=== PATIENT | female | born 1980 | race African-American/Black ===

== ENCOUNTER 2017-03-28 17:46 | Emergency (ER) | payer OTHER ==
[~2017-03-28] VITALS: Ht 167.6 cm; Wt 61.2 kg
[~2017-03-28 17:46] MED LIST: FLUC150T PO; METR500T PO
[2017-03-28] MEDS ORDERED: HYDROcodone/APAP 5/325MG 1 TAB TABLET PO ONE (18:00)
[2017-03-28 18:01] VITALS: BP 157/82
[2017-03-28] MEDS ORDERED: HYDR-971 PO (18:36)
--- NOTE | 2017-03-28 18:37 | PHYS DOC ---
Past Medical History Past Medical History: Diabetes-Type II Past Surgical History: Hysterectomy Alcohol Use: Occasionally Drug Use: None Adult General Chief Complaint Chief Complaint: FOOT INJURY PAIN HPI HPI Patient is a 36 year old female presents the ED complaining of foot injury 4 hours. Patient states her son accidentally dropped a chair on her left foot. Increasing in swelling since the accident. Rates pain as sharp and 10/10. Denies fever, calf tenderness/swelling, chest pain, shortness of breath, abdominal pain or headache.. Review of Systems Review of Systems Constitutional: Denies fever or chills [] Eyes: Denies change in visual acuity, redness, or eye pain [] HENT: Denies nasal congestion or sore throat [] Respiratory: Denies cough or shortness of breath [] Cardiovascular: No additional information not addressed in HPI [] GI: Denies abdominal pain, nausea, vomiting, bloody stools or diarrhea [] : Denies dysuria or hematuria [] Musculoskeletal: Denies back pain. Complains of foot sprain. [] Integument: Denies rash or skin lesions [] Neurologic: Denies headache, focal weakness or sensory changes [] Endocrine: Denies polyuria or polydipsia [] Current Medications Current Medications Current Medications Medications (Trade) Dose Ordered Sig/Angelica Start Time Stop Time Status Last Admin Dose Admin Acetaminophen/ Hydrocodone Bitart (Lortab 5/325) 1 tab 1X ONCE 03/28/17 18:00 03/28/17 18:06 DC 03/28/17 18:19 1 TAB Allergies Allergies Allergies Coded Allergies Type Severity Reaction Last Updated Verified No Known Drug Allergies 02/27/14 No Physical Exam Physical Exam Constitutional: Well developed, well nourished, no acute distress, non-toxic appearance. [] HENT: Normocephalic, atraumatic, bilateral external ears normal, oropharynx moist, no oral exudates, nose normal. [] Eyes: PERRLA, EOMI, conjunctiva normal, no discharge. [] Neck: Normal range of motion, no tenderness, supple, no stridor. [] Cardiovascular:Heart rate regular rhythm, no murmur [] Lungs & Thorax: Bilateral breath sounds clear to auscultation [] Abdomen: Bowel sounds normal, soft, no tenderness, no masses, no pulsatile masses. [] Skin: Warm, dry, no erythema, no rash. [] Back: No tenderness, no CVA tenderness. [] Extremities: MILD LEFT FOOT TENDERNESS/SWELLING. no cyanosis, no clubbing, ROM intact, no edema. [] Neurologic: Alert and oriented X 3, normal motor function, normal sensory function, no focal deficits noted. [] Psychologic: Affect normal, judgement normal, mood normal. [] Current Patient Data Vital Signs Vital Signs Date Time Temp Pulse Resp B/P (MAP) Pulse Ox O2 Delivery O2 Flow Rate FiO2 03/28/17 18:01 98.0 90 18 99 Room Air 98.0 EKG EKG [] Radiology/Procedures Radiology/Procedures PROCEDURE: FOOT LEFT 3V EXAM: Left foot 3 views. HISTORY: Metal chair fell on foot. COMPARISON: None. FINDINGS: There is soft tissue swelling along the dorsum of the midfoot. No fractures are identified. Joint spaces and alignment are maintained. IMPRESSION: 1. Soft tissue swelling. No fracture.[] Course & Med Decision Making Course & Med Decision Making Pertinent Labs and Imaging studies reviewed. (See chart for details) []Reviewed imaging findings with patient. Patient's pain improved. Splint placed. NV intact post placement. Crutches given. Vital stable, no acute distress. Discussed follow-up with orthopedics in 1-2 days. Discussed reasons to return to the ED. Patient understands and agrees with plan. Dragon Disclaimer Dragon Disclaimer This electronic medical record was generated, in whole or in part, using a voice recognition dictation system. Departure Departure Impression: Primary Impression: Foot injury Additional Impression: Foot sprain Disposition: HOME, SELF-CARE Condition: STABLE Referrals: NO PCP (PCP) KARINA HERNANDEZ MD, JOHN N MD Patient Instructions: Foot Contusion Scripts Hydrocodone/Apap 5-325 (NORCO 5-325 TABLET) 1 Each Tablet 1 TAB PO TID, #6 TAB Prov: OLIVER MORENO 03/28/17 Problem Qualifiers OLIVER MORENO Mar 28, 2017 18:37
--- NOTE | 2017-03-29 09:49 | RAD ---
EXAM: Left foot 3 views. HISTORY: Metal chair fell on foot. COMPARISON: None. FINDINGS: There is soft tissue swelling along the dorsum of the midfoot. No fractures are identified. Joint spaces and alignment are maintained. IMPRESSION: 1. Soft tissue swelling. No fracture.
== END 2017-03-28 18:52 | disposition home or self-care (01) ==
LOC: ER 17:46
DX: S93.602A Unspecified sprain of left foot, initial encounter (principal); W20.8XXA Other cause of strike by thrown, projected or falling object, initial encounter; Y93.89 Activity, other specified; Y92.89 Other specified places as the place of occurrence of the external cause; Y99.8 Other external cause status
CPT/HCPCS: 29515; 73630; 99284-25

== ENCOUNTER 2017-04-12 12:22 | Emergency (ER) | payer OTHER ==
[~2017-04-12] VITALS: Ht 167.6 cm; Wt 61.7 kg
[~2017-04-12 12:22] MED LIST changes: +HYDR-971 PO
[2017-04-12 13:12] VITALS: BP 160/69
[2017-04-12] MEDS ORDERED: NAPROXEN 500 MG TABLET PO STA (13:16)
[2017-04-12] MEDS ORDERED: HYDROcodone/APAP 5/325MG 1 TAB TABLET PO ONE (13:30)
[2017-04-12] MEDS ORDERED: NAPR500T8 PO (14:07)
[2017-04-12] MEDS ORDERED: OXYC-323 PO (14:07)
--- NOTE | 2017-04-12 14:07 | PHYS DOC ---
Past Medical History Past Medical History: Diabetes-Type II Past Surgical History: Hysterectomy Alcohol Use: Occasionally Drug Use: None Adult General Chief Complaint Chief Complaint: FOOT INJURY PAIN HPI HPI Patient is a 36 year old female with history of DM II who presents today with moderate left foot pain specifically on the lateral aspect that began today after patient rolled her foot and fell. Patient denies any loss of consciousness. Review of Systems Review of Systems Constitutional: Denies fever or chills [] Musculoskeletal: moderate left foot pain Integument: Denies rash or skin lesions [] Neurologic: Denies headache, focal weakness or sensory changes [] Current Medications Current Medications Current Medications Medications (Trade) Dose Ordered Sig/Angelica Start Time Stop Time Status Last Admin Dose Admin Acetaminophen/ Hydrocodone Bitart (Lortab 5/325) 2 tab 1X ONCE 04/12/17 13:30 04/12/17 13:31 DC 04/12/17 13:26 2 TAB Morphine Sulfate 5 mg 1X ONCE 04/12/17 14:15 04/12/17 14:16 DC 04/12/17 14:19 5 MG Naproxen (Naprosyn) 500 mg 1X STAT 04/12/17 13:16 04/12/17 13:18 DC 04/12/17 13:26 500 MG Allergies Allergies Allergies Coded Allergies Type Severity Reaction Last Updated Verified No Known Drug Allergies 02/27/14 No Physical Exam Physical Exam Constitutional: Well developed, well nourished, no acute distress, non-toxic appearance. [] Skin: Warm, dry, no erythema, no rash. [] Back: No tenderness, no CVA tenderness. [] Extremities: Left foot appears deformed. There is moderate soft tissue swelling noted on the lateral aspect of the left foot as well as along the proximal fourth and fifth metatarsals. Tenderness on palpation of the base of the fifth metatarsal of the left foot. No navicular bone pain of the left foot. +2 left pedal pulse. Full range of motion to the left toes. Neurologic: Alert and oriented X 3, normal motor function, normal sensory function, no focal deficits noted. [] Psychologic: Affect normal, judgement normal, mood normal. [] Current Patient Data Vital Signs Vital Signs Date Time Temp Pulse Resp B/P (MAP) Pulse Ox O2 Delivery O2 Flow Rate FiO2 04/12/17 14:19 18 96 Room Air 04/12/17 13:12 98.1 78 98.1 EKG EKG [] Radiology/Procedures Radiology/Procedures [] Course & Med Decision Making Course & Med Decision Making Pertinent Labs and Imaging studies reviewed. (See chart for details) Patient is in the ED with left foot pain that began today after she rolled her foot and fell. It foot x-rays interpreted by radiologist were noted for fracture of the base of the fifth metatarsal of the left foot. Patient was placed in a posterior leg splint by the ED RN, neurovascular exam done by me is normal, ice elevation encouraged. Provided crutches. Follow-up with orthopedic doctor by calling the office today or tomorrow for appointment. Dragon Disclaimer Dragon Disclaimer This electronic medical record was generated, in whole or in part, using a voice recognition dictation system. Departure Departure Impression: Primary Impression: Fracture of fifth metatarsal bone of left foot Additional Impression: Fall from standing Disposition: 01 HOME, SELF-CARE Condition: STABLE Referrals: NO PCP (PCP) IRMA CASTILLO II, MD call his office today and set up a follow up appointment Patient Instructions: Metatarsal Stress Fracture-SportsMed Additional Instructions: You were seen with left fifth metatarsal fracture. Ice and elevate the extremity. Contact the provided orthopedic doctor tomorrow morning or this afternoon and set up a follow-up appointment. Do not drive or operate machinery on the pain medicine. Scripts Ibuprofen (IBUPROFEN) 800 Mg Tablet 800 MG PO PRN Q6HRS Y for INFLAMMATION, #30 TAB Prov: CARMEN PLATA APRN 04/12/17 Naproxen (NAPROXEN) 500 Mg Tablet.dr 1 TAB PO BID, #60 TAB 2 Refills Prov: CARMEN PLATA APRN 04/12/17 Oxycodone/Apap 5-325 (PERCOCET 5-325 MG TABLET) 1 Each Tablet 1-2 TAB PO Q4-6HRS, #20 TAB Prov: CARMEN PLATA APRN 04/12/17 Problem Qualifiers Primary Impression: Fracture of fifth metatarsal bone of left foot Encounter type: initial encounter Fracture type: closed Fracture alignment : nondisplaced Qualified Codes: S92.355A - Nondisplaced fracture of fifth metatarsal bone, left foot, initial encounter for closed fracture Additional Impression: Fall from standing Encounter type: initial encounter Qualified Codes: W19.XXXA - Unspecified fall, initial encounter MUTUNGA,CARMEN BINGO CALLER Apr 12, 2017 14:07
[2017-04-12] MEDS ORDERED: MORPHINE SULFATE 10 MG/ML VIAL. IM ONE (14:15)
[2017-04-12] MEDS ORDERED: IBUP-1060 PO (14:15)
--- NOTE | 2017-04-12 14:19 | RAD ---
Exam performed: 3 views left foot. History: Trauma today pain to the left lateral foot near the base of fifth metatarsal. Date of service: 04/12/17 comparison: None available 3 views left foot findings: Normal alignment is preserved. There is a nondisplaced fracture base of fifth metatarsals. Mild soft tissue swelling is seen. No foreign body. Impression: Nondisplaced acute fracture base of fifth metatarsal.
== END 2017-04-12 14:36 | disposition home or self-care (01) ==
LOC: ER 12:22
DX: S92.355A Nondisplaced fracture of fifth metatarsal bone, left foot, initial encounter for closed fracture (principal); E11.9 Type 2 diabetes mellitus without complications; W18.39XA Other fall on same level, initial encounter; Y93.89 Activity, other specified; Y99.8 Other external cause status; Y92.89 Other specified places as the place of occurrence of the external cause
CPT/HCPCS: 29515; 73630; 96372; 99284; J2270

== ENCOUNTER 2017-12-04 20:51 | Emergency (ER) | payer OTHER ==
[2017-12-04] MEDS: ONDANSETRON PF 4 MG/2 ML VIAL. IV (21:46)
[2017-12-04] MEDS: MORPHINE SULFATE 10 MG/ML VIAL. IV ×2 (21:47→23:39)
== END 2017-12-05 00:01 | disposition home or self-care (01) ==
LOC: ER 12-05 00:01
DX: S02.2XXA Fracture of nasal bones, initial encounter for closed fracture (principal); J34.2 Deviated nasal septum; M54.2 Cervicalgia; E11.9 Type 2 diabetes mellitus without complications; Y04.0XXA Assault by unarmed brawl or fight, initial encounter; Y93.89 Activity, other specified; Y99.8 Other external cause status; Y92.89 Other specified places as the place of occurrence of the external cause
CPT/HCPCS: 70450; 70486; 72125; 96374; 96375; 96376; 99284-25; J2270; J2405

== ENCOUNTER 2018-03-31 17:06 | Emergency (ER) | payer OTHER ==
[~2018-03-31] VITALS: Ht 165.1 cm; Wt 54.4 kg
[~2018-03-31 17:06] MED LIST changes: +AMOX1TAB61 PO; +IBUP-1060 PO; +NAPR500T8 PO; +OXYC-323 PO; +OXYC-327 PO
[2018-03-31 19:00] VITALS: BP 111/72
[2018-03-31] MEDS ORDERED: HYDR-971 PO (19:50)
[2018-03-31] MEDS ORDERED: DICL50TA4 PO (19:50)
[2018-03-31] MEDS ORDERED: AMOX875T PO (19:50)
--- NOTE | 2018-03-31 19:51 | PHYS DOC ---
Past Medical History Past Medical History: Anxiety, Depression, Diabetes-Type II Past Surgical History: Hysterectomy, Other Additional Past Surgical Histo: THYROIDECTOMY Alcohol Use: Occasionally Drug Use: None Adult General Chief Complaint Chief Complaint: FOOT INJURY PAIN HPI HPI Patient is a 37 year old female with history of depression, anxiety, hypertension, who presents today complaining of 10 out of 10 left toes pain that began 3 days ago after a dresser she was moving fell on the tip of her toes. Patient states the pain is worse on range of motion to the toes. She states the pain radiates to the left calf. Patient states she has tried over-the -counter medications with no relief. Patient is also complaining of moderate left ear pain for 2 days. Patient states she believes she has an ear infection. Denies any fever coughing or congestion. Review of Systems Review of Systems Constitutional: Denies fever or chills [] Eyes: Denies change in visual acuity, redness, or eye pain [] HENT: Reports left ear pain. Denies nasal congestion or sore throat [] Respiratory: Denies cough or shortness of breath [] Cardiovascular: No additional information not addressed in HPI [] GI: Denies abdominal pain, nausea, vomiting, bloody stools or diarrhea [] : Denies dysuria or hematuria [] Musculoskeletal: Reports left toes pain Integument: Denies rash or skin lesions [] Neurologic: Denies headache, focal weakness or sensory changes [] All other systems were reviewed and found to be within normal limits, except as documented in this note. Allergies Allergies Allergies Coded Allergies Type Severity Reaction Last Updated Verified No Known Drug Allergies 02/27/14 No Physical Exam Physical Exam Constitutional: Well developed, well nourished, no acute distress, non-toxic appearance. [] HENT: Normocephalic, atraumatic, bilateral external ears normal, oropharynx moist, no oral exudates, nose normal. [] Left him is moderately injected, small amount of cloudy fluid. Eyes: PERRLA, EOMI, conjunctiva normal, no discharge. [] Neck: Normal range of motion, no tenderness, supple, no stridor. [] Cardiovascular:Heart rate regular rhythm, no murmur [] Lungs & Thorax: Bilateral breath sounds clear to auscultation [] Abdomen: Bowel sounds normal, soft, no tenderness, no masses, no pulsatile masses. [] Skin: Warm, dry, no erythema, no rash. [] Back: No tenderness, no CVA tenderness. [] Extremities: Left lower extremity with no obvious deformity. Slight tenderness on palpation of the left second and third toes. Full range of motion to the left foot and toes. Negative Homans sign to the left lower extremity. +2 left pedal pulse. Cap refill less than 2 seconds the left toes. Sensation intact to the left lower extremity. Neurologic: Alert and oriented X 3, normal motor function, normal sensory function, no focal deficits noted. [] Psychologic: Affect normal, judgement normal, mood normal. [] Current Patient Data Vital Signs Vital Signs Date Time Temp Pulse Resp B/P (MAP) Pulse Ox O2 Delivery O2 Flow Rate FiO2 03/31/18 19:00 98.1 80 16 111/72 (85) 100 Room Air 98.1 EKG EKG [] Radiology/Procedures Radiology/Procedures [] Course & Med Decision Making Course & Med Decision Making Pertinent Labs and Imaging studies reviewed. (See chart for details) This is a 37-year-old female patient presenting to the ED today with left otitis media as well as left foot contusion. Left foot x-rays interpreted by Dr. Alexander are negative for any acute findings. Patient was discharged with amoxicillin. Follow-up with PCP in 1-2 weeks as needed. Dragon Disclaimer Dragon Disclaimer This electronic medical record was generated, in whole or in part, using a voice recognition dictation system. Departure Departure Impression: Primary Impression: Contracture, left foot Additional Impression: Otitis media Disposition: 01 HOME, SELF-CARE Condition: STABLE Referrals: GILBERT ROMAN MD (PCP) follow up with your doctor in 2 weeks Patient Instructions: Contusion, [id number], Otitis Media, Adult Additional Instructions: You were evaluated in the emergency room for left foot contusion and left ear infection. Complete your antibiotics. Follow-up with your own doctor in 1-2 weeks. Come back to the ED at any point symptoms worsen. Ice elevate the extremity. Scripts Fluconazole (DIFLUCAN) 150 Mg Tablet 1 TAB PO ONCE, #1 TAB 0 Refills Prov: MUTUNGA,CARMEN BOARD MILL SUPERVISOR 03/31/18 Diclofenac Sodium (DICLOFENAC SODIUM) 50 Mg Tablet.dr 1 TAB PO BID, #20 TAB 0 Refills Prov: MUTUNGA,CARMEN BOARD MILL SUPERVISOR 03/31/18 Hydrocodone/Apap 5-325 (NORCO 5-325 TABLET) 1 Each Tablet 1 TAB PO Q6HRS, #10 TAB Prov: CARMEN PLATA APRN 03/31/18 Amoxicillin (AMOXICILLIN) 875 Mg Tablet 1 TAB PO BID, #20 TAB Prov: CARMEN PLATA APRN 03/31/18 Problem Qualifiers Additional Impression: Otitis media Otitis media type: other nonsuppurative Chronicity: acute Laterality: left Recurrence: not specified as recurrent Qualified Codes: H65.192 - Other acute nonsuppurative otitis media, left ear GENNYSANDEECARMEN TORRES Mar 31, 2018 19:51
[2018-03-31] MEDS ORDERED: FLUC150T PO (19:52)
--- NOTE | 2018-04-01 06:27 | RAD ---
Indication:pain, dresser fell on the toes TECHNIQUE: 3 views of the left foot COMPARISON:None FINDINGS/ impression: No acute fracture or dislocation. No soft tissue abnormality. Electronically signed by: Shaq Clark DO (04/01/2018 6:24 AM) [facility]
== END 2018-03-31 20:35 | disposition home or self-care (01) ==
LOC: ER 17:06
DX: M24.575 Contracture, left foot (principal); H65.192 Other acute nonsuppurative otitis media, left ear; E11.9 Type 2 diabetes mellitus without complications; I10 Essential (primary) hypertension
CPT/HCPCS: 73630; 99284

== ENCOUNTER 2018-05-23 13:16 | Emergency (ER) | payer OTHER ==
[~2018-05-23] VITALS: Ht 167.6 cm; Wt 62.1 kg
[~2018-05-23 13:16] MED LIST changes: +AMOX875T PO; +DICL50TA4 PO; +HYDR-3164 PO; -HYDR-971 PO
[2018-05-23 13:44] VITALS: BP 108/70
[2018-05-23 14:28] LABS: BASO # 0.2 x10^3/uL (0.0-0.2); BASO % 2 % (0-3); EOS # 0.5 x10^3/uL (0.0-0.7); EOS % 5 % (0-3); HEMATOCRIT 41.6 % (36.0-47.0); HEMOGLOBIN 14.3 g/dL (12.0-15.5); LYMPH # 3.1 x10^3/uL (1.0-4.8); LYMPH % 29 % (24-48); MEAN CORPUSCULAR HEMOGLOBIN 32 pg (25-35); MEAN CORPUSCULAR HGB CONC 34 g/dL (31-37); MEAN CORPUSCULAR VOLUME 92 fL (79-100); MONO # 1.3 x10^3/uL (0.0-1.1); MONO % 12 % (0-9); NEUT # 5.5 x10^3uL (1.8-7.7); NEUT % 52 % (31-73); PLATELET COUNT 257 x10^3/uL (140-400); RED BLOOD COUNT 4.53 x10^6/uL (3.50-5.40); RED CELL DISTRIBUTION WIDTH 14.1 % (11.5-14.5); WHITE BLOOD COUNT 10.6 x10^3/uL (4.0-11.0)
[2018-05-23 14:33] LABS: CALCIUM 8.6 mg/dL (8.5-10.1); CREATININE 0.8 mg/dL (0.6-1.0); GFR 98.8; POTASSIUM 3.9 mmol/L (3.5-5.1)
[2018-05-23 14:39] LABS: TOTAL BILIRUBIN 0.3 mg/dL (0.2-1.0)
[2018-05-23 15:01] LABS: ALBUMIN 3.2 g/dL (3.4-5.0); ALBUMIN/GLOBULIN RATIO 0.9 (1.0-1.7); TOTAL PROTEIN 6.8 g/dL (6.4-8.2)
[2018-05-23] MEDS ORDERED: AMOX1TAB61 PO (15:19)
--- NOTE | 2018-05-23 15:20 | PHYS DOC ---
Past Medical History Past Medical History: Anxiety, Depression, Diabetes-Type II Past Surgical History: Hysterectomy, Other Additional Past Surgical Histo: THYROIDECTOMY Additional Information: "1/2 PACK DAILY" Alcohol Use: Occasionally Drug Use: Benzodiazepine Adult General Chief Complaint Chief Complaint: LOWER EXTREMITY SWELLING HPI HPI Patient is a 37 year old female who presents with complaints. The patient states that she has had a sore throat and sinus drainage. She also is complaining of a cough and states that she has been having charley horses in her feet. She states that her symptoms have been intermittent times the past month. She denies fever or shortness of breath. Review of Systems Review of Systems Constitutional: Denies fever or chills [] Eyes: Denies change in visual acuity, redness, or eye pain [] HENT: See history of present illness Respiratory: Denies cough or shortness of breath [] Cardiovascular: No additional information not addressed in HPI [] GI: Denies abdominal pain, nausea, vomiting, bloody stools or diarrhea [] : Denies dysuria or hematuria [] Musculoskeletal: See history of present illness Integument: Denies rash or skin lesions [] Neurologic: Denies headache, focal weakness or sensory changes [] Endocrine: Denies polyuria or polydipsia [] All other systems were reviewed and found to be within normal limits, except as documented in this note. Allergies Allergies Allergies Coded Allergies Type Severity Reaction Last Updated Verified No Known Drug Allergies 02/27/14 No Physical Exam Physical Exam Constitutional: Well developed, well nourished, no acute distress, non-toxic appearance. [] HENT: Normocephalic, atraumatic, bilateral external ears normal, pharyngeal erythema with sinus drainage noted to back of throat, no oral exudates noted, nose normal. [] Eyes: PERRLA, EOMI, conjunctiva normal, no discharge. [] Neck: Normal range of motion, no tenderness, supple, no stridor. [] Cardiovascular:Heart rate regular rhythm, no murmur [] Lungs & Thorax: Bilateral breath sounds clear to auscultation [] Abdomen: Bowel sounds normal, soft, no tenderness, no masses, no pulsatile masses. [] Skin: Warm, dry, no erythema, no rash. [] Neurologic: Alert and oriented X 3, normal motor function, normal sensory function, no focal deficits noted. [] Psychologic: Affect normal, judgement normal, mood normal. [] Current Patient Data Vital Signs Vital Signs Date Time Temp Pulse Resp B/P (MAP) Pulse Ox O2 Delivery O2 Flow Rate FiO2 05/23/18 13:44 97.8 87 20 108/70 (83) 98 Room Air 97.8 Lab Values Laboratory Tests Test 05/23/18 14:09 White Blood Count 10.6 x10^3/uL (4.0-11.0) Red Blood Count 4.53 x10^6/uL (3.50-5.40) Hemoglobin 14.3 g/dL (12.0-15.5) Hematocrit 41.6 % (36.0-47.0) Mean Corpuscular Volume 92 fL (79-100) Mean Corpuscular Hemoglobin 32 pg (25-35) Mean Corpuscular Hemoglobin Concent 34 g/dL (31-37) Red Cell Distribution Width 14.1 % (11.5-14.5) Platelet Count 257 x10^3/uL (140-400) Neutrophils (%) (Auto) 52 % (31-73) Lymphocytes (%) (Auto) 29 % (24-48) Monocytes (%) (Auto) 12 % (0-9) H Eosinophils (%) (Auto) 5 % (0-3) H Basophils (%) (Auto) 2 % (0-3) Neutrophils # (Auto) 5.5 x10^3uL (1.8-7.7) Lymphocytes # (Auto) 3.1 x10^3/uL (1.0-4.8) Monocytes # (Auto) 1.3 x10^3/uL (0.0-1.1) H Eosinophils # (Auto) 0.5 x10^3/uL (0.0-0.7) Basophils # (Auto) 0.2 x10^3/uL (0.0-0.2) Sodium Level 140 mmol/L (136-145) Potassium Level 3.9 mmol/L (3.5-5.1) Chloride Level 106 mmol/L (98-107) Carbon Dioxide Level 24 mmol/L (21-32) Anion Gap 10 (6-14) Blood Urea Nitrogen 14 mg/dL (7-20) Creatinine 0.8 mg/dL (0.6-1.0) Estimated GFR (Cockcroft-Gault) 98.8 BUN/Creatinine Ratio 18 (6-20) Glucose Level 96 mg/dL (70-99) Calcium Level 8.6 mg/dL (8.5-10.1) Total Bilirubin 0.3 mg/dL (0.2-1.0) Aspartate Amino Transferase (AST) 18 U/L (15-37) Alanine Aminotransferase (ALT) 26 U/L (14-59) Alkaline Phosphatase 51 U/L (46-116) Total Protein 6.8 g/dL (6.4-8.2) Albumin 3.2 g/dL (3.4-5.0) L Albumin/Globulin Ratio 0.9 (1.0-1.7) L Laboratory Tests 05/23/18 14:09 Laboratory Tests 05/23/18 14:09 EKG EKG [] Radiology/Procedures Radiology/Procedures [] Course & Med Decision Making Course & Med Decision Making Pertinent Labs and Imaging studies reviewed. (See chart for details) [] Dragon Disclaimer Dragon Disclaimer This electronic medical record was generated, in whole or in part, using a voice recognition dictation system. Departure Departure Impression: Primary Impression: Sinusitis Disposition: HOME, SELF-CARE Condition: STABLE Referrals: GILBERT ROMAN MD (PCP) Patient Instructions: Sinusitis Additional Instructions: Take the medication as directed. Follow-up with your primary care provider in one week for recheck if not improving or return to the emergency department if worsening. Scripts Benzonatate (TESSALON PERLE) 100 Mg Capsule 1 CAP PO TID for cough, #21 CAP Prov: JONATHAN JEFFRIES APRN 05/23/18 Amoxicillin/Potassium Clav (AUGMENTIN 875-125 TABLET) 1 Each Tablet 1 TAB PO BID for infection, #20 TAB Prov: JONATHAN JEFFRIES APRN 05/23/18 JONATHAN JEFFRIES APRN May 23, 2018 15:20
[2018-05-23] MEDS ORDERED: BENZ100C PO (15:28)
== END 2018-05-23 15:31 | disposition home or self-care (01) ==
LOC: ER 13:16
DX: J32.9 Chronic sinusitis, unspecified (principal); E11.9 Type 2 diabetes mellitus without complications; F17.200 Nicotine dependence, unspecified, uncomplicated
CPT/HCPCS: 36415; 80053; 85025; 99283

== ENCOUNTER 2018-08-24 19:20 | Emergency (ER) | payer SELFPAY ==
[~2018-08-24] VITALS: Ht 167.6 cm; Wt 63.5 kg
[~2018-08-24 19:20] MED LIST changes: +BENZ100C PO; -OXYC-323 PO; -OXYC-327 PO; +OXYC1TAB15 PO; +OXYC1TAB19 PO
[2018-08-24 20:19] VITALS: BP 122/79
[2018-08-24 20:38] LABS: BILIRUBIN,URINE NEGATIVE (NEG); CLARITY,URINE CLEAR; COLOR,URINE YELLOW; NITRITE,URINE NEGATIVE (NEG); PH,URINE 6.5; PROTEIN,URINE NEGATIVE (NEG-TRACE)
[2018-08-24 20:46] LABS: BACTERIA,URINE FEW /HPF (0-FEW); SQUAMOUS EPITHELIAL CELL,UR MOD /LPF; WBC,URINE OCC /HPF (0-4)
--- NOTE | 2018-08-24 20:53 | PHYS DOC ---
Past Medical History Past Medical History: Anxiety, Depression, Diabetes-Type II (ELENI TURNER APRN) Past Surgical History: Hysterectomy, Other Additional Past Surgical Histo: THYROIDECTOMY (ELENI TURNER APRN) Alcohol Use: Occasionally Drug Use: Benzodiazepine (ELENI TURNER APRN) Adult General Chief Complaint Chief Complaint: SORE THROAT HPI HPI Patient is a 38 year old female who presents with sore throat and some was recently diagnosed with strep. Patient states the symptoms started couple days ago. Patient states she also has an itchy and painful vagina and does have STD concerns but states that she probably has bacterial vaginosis that she's had in the past. Patient denies any vaginal discharge. States she did try Monistat 3 and only made things worse. (ELENI TURNER APRN) Review of Systems Review of Systems Constitutional: Denies fever or chills [] Eyes: Denies change in visual acuity, redness, or eye pain [] HENT: Denies nasal congestion. sore throat [] Respiratory: Denies cough or shortness of breath [] Cardiovascular: No additional information not addressed in HPI [] GI: Denies abdominal pain, nausea, vomiting, bloody stools or diarrhea [] : Denies dysuria or hematuria [] Musculoskeletal: Denies back pain or joint pain [] Integument: Denies rash or skin lesions [] Neurologic: Denies headache, focal weakness or sensory changes [] All other systems were reviewed and found to be within normal limits, except as documented in this note. (ELENI TURNER APRN) Current Medications Current Medications Current Medications Medications (Trade) Dose Ordered Sig/Angelica Start Time Stop Time Status Last Admin Dose Admin Acetaminophen/ Hydrocodone Bitart (Lortab 5/325) 1 tab 1X ONCE 08/24/18 21:00 08/24/18 21:01 DC 08/24/18 20:58 1 TAB Azithromycin (Zithromax) 1,000 mg 1X ONCE 08/24/18 21:45 08/24/18 21:46 DC 08/24/18 22:05 1,000 MG Ceftriaxone Sodium (Rocephin Im) 250 mg 1X ONCE 08/24/18 21:45 08/24/18 21:46 DC 08/24/18 22:05 250 MG Dexamethasone (Decadron) 8 mg 1X ONCE 08/24/18 21:00 08/24/18 21:01 DC 08/24/18 20:58 8 MG Fluconazole (Diflucan) 150 mg 1X ONCE 08/24/18 22:15 08/24/18 22:16 DC 08/24/18 22:15 150 MG (KARINA COTA DO) Allergies Allergies Allergies Coded Allergies Type Severity Reaction Last Updated Verified No Known Drug Allergies 02/27/14 No (KARINA COTA DO) Physical Exam Physical Exam Constitutional: Well developed, well nourished, no acute distress, non-toxic appearance. [] HENT: Normocephalic, atraumatic, bilateral external ears normal, oropharynx moist, no oral exudates, nose normal. Throat reddened and no exudate. Swollen bilateral tonsils. [] Eyes: PERRLA, EOMI, conjunctiva normal, no discharge. [] Neck: Normal range of motion, no tenderness, supple, no stridor. [] Cardiovascular:Heart rate regular rhythm, no murmur [] Lungs & Thorax: Bilateral breath sounds clear to auscultation [] Abdomen: Bowel sounds normal, soft, no tenderness, no masses, no pulsatile masses. [] Skin: Warm, dry, no erythema, no rash. [] Back: No tenderness, no CVA tenderness. [] Extremities: No tenderness, no cyanosis, no clubbing, ROM intact, no edema. [] Neurologic: Alert and oriented X 3, normal motor function, normal sensory function, no focal deficits noted. [] Psychologic: Affect normal, judgement normal, mood normal. [] (ELENI TURNER APRN) Current Patient Data Vital Signs Vital Signs Date Time Temp Pulse Resp B/P (MAP) Pulse Ox O2 Delivery O2 Flow Rate FiO2 08/24/18 21:58 18 98 Room Air 08/24/18 20:19 98.4 71 122/79 (93) 98.4 (KARINA COTA DO) Lab Values Laboratory Tests Test 08/24/18 20:00 08/24/18 20:39 08/24/18 21:35 Urine Collection Type Unknown Urine Color Yellow Urine Clarity Clear Urine pH 6.5 Urine Specific [place] 1.025 Urine Protein Negative mg/dL (NEG-TRACE) Urine Glucose (UA) Negative mg/dL (NEG) Urine Ketones (Stick) Negative mg/dL (NEG) Urine Blood Moderate (NEG) Urine Nitrite Negative (NEG) Urine Bilirubin Negative (NEG) Urine Urobilinogen Dipstick 1.0 mg/dL (0.2 mg/dL) Urine Leukocyte Esterase Negative (NEG) Urine RBC 6-10 /HPF (0-2) Urine WBC Occ /HPF (0-4) Urine Squamous Epithelial Cells Mod /LPF Urine Bacteria Few /HPF (0-FEW) Urine Mucus Marked /LPF Group A Streptococcus Rapid Negative (NEGATIVE) Chlamydia DNA Probe Negative (Negative) Neisseria gonorrhoeae DNA Probe Negative (Negative) Microbiology 08/24/18 Wet Prep - Final, Complete 08/24/18 Throat Culture - Final, Complete 08/24/18 - Final, Complete (KARINA COTA DO) Lab Values Laboratory Tests Test 08/24/18 20:00 Urine Collection Type Unknown Urine Color Yellow Urine Clarity Clear Urine pH 6.5 Urine Specific [place] 1.025 Urine Protein Negative mg/dL (NEG-TRACE) Urine Glucose (UA) Negative mg/dL (NEG) Urine Ketones (Stick) Negative mg/dL (NEG) Urine Blood Moderate (NEG) Urine Nitrite Negative (NEG) Urine Bilirubin Negative (NEG) Urine Urobilinogen Dipstick 1.0 mg/dL (0.2 mg/dL) Urine Leukocyte Esterase Negative (NEG) Urine RBC 6-10 /HPF (0-2) Urine WBC Occ /HPF (0-4) Urine Squamous Epithelial Cells Mod /LPF Urine Bacteria Few /HPF (0-FEW) Urine Mucus Marked /LPF Microbiology 08/24/18 Wet Prep - Final, Complete (ELENI TURNER APRN) EKG EKG [] (ELENI TURNER AUTOMOTIVE CENTER MANAGER) Radiology/Procedures Radiology/Procedures [] (ELENI TURNER APRN) Course & Med Decision Making Course & Med Decision Making Patient is a 38 year old female who presents with sore throat and some was recently diagnosed with strep. Patient states the symptoms started couple days ago. Patient states she also has an itchy and painful vagina and does have STD concerns but states that she probably has bacterial vaginosis that she's had in the past. Patient denies any vaginal discharge. States she did try Monistat 3 and only made things worse. Alert and oriented. Speaks in full clear sentences. Mucous membranes moist. Skin pink warm and dry. Afebrile. Vital signs within normal limits. Bilateral tonsils are reddened with 1-2+ swelling and no exudates. Tympanic membranes are pearly white. Lungs are clear to auscultation all lobes. Vital signs are within normal limits. There is no lymph nodes felt. Patient is given Munith for her throat pain and dexamethasone. She'll also be treated for sexually transmitted diseases. Urinalysis shows no section. Wet prep shows yeast. Patient will be sent home and is told that he will receive a phone call in 48 hours if her chlamydia or gonorrhea is positive only. Patient has been treated today for sexually transmitted diseases. Patient will be given a dose of Diflucan. Pelvic Exam: [employer] present Abdomen: Nontender External Genitalia: Normal Skin Speculum: reddened vaginal mucosa, copious white cervical discharge Bimanual: No adnexal masses or tenderness, No CMT (ELENI TURNER APRN) Dragon Disclaimer Dragon Disclaimer This electronic medical record was generated, in whole or in part, using a voice recognition dictation system. (ELENI TURNER APRN) Departure Departure Impression: Primary Impression: Yeast infection Additional Impression: Sore throat Disposition: HOME, SELF-CARE Condition: STABLE Referrals: GILBERT ROMAN MD (PCP) Patient Instructions: Sore Throat Additional Instructions: Use medications as prescribed. Follow up with primary care if needed. Scripts Azithromycin (AZITHROMYCIN TABLET) 250 Mg Tablet 250 MG PO DAILY for ANTI-BIOTIC for 4 Days, #4 TAB 0 Refills Prov: ELENI TURNER APRN 08/24/18 Fluconazole (DIFLUCAN) 150 Mg Tablet 1 TAB PO ONCE, #1 TAB 1 Refill Prov: ELENI TURNER APRN 08/24/18 Attending Signature Attending Signature I have reviewed the PA/CLINICAL SERVICES DIRECTOR's note and plan of care. I was available for consultation as needed during the patient's visit in the emergency department. I agree with the clinical impression, plan, and disposition. (KARINA COTA DO) Problem Qualifiers ELENI TURNER APRN Aug 24, 2018 20:53 KARINA COTA DO Aug 29, 2018 17:12
[2018-08-24] MEDS ORDERED: HYDROcodone/APAP 5/325MG 1 TAB TABLET PO ONE (21:00)
[2018-08-24] MEDS ORDERED: DEXAMETHASONE 4 MG TABLET PO ONE (21:00)
[2018-08-24] MEDS ORDERED: cefTRIAXone IM 250 MG VIAL IM ONE (21:45)
[2018-08-24] MEDS ORDERED: AZITHROMYCIN 250 MG TABLET. PO ONE (21:45)
[2018-08-24] MEDS ORDERED: AZIT250T6 PO (22:00)
[2018-08-24] MEDS ORDERED: FLUC150T PO (22:00)
[2018-08-24] MEDS ORDERED: FLUCONAZOLE 100 MG TABLET. PO ONE (22:15)
[2018-08-26 13:20] LABS: GC PROBE Negative (Negative)
== END 2018-08-24 22:20 | disposition home or self-care (01) ==
LOC: ER 19:20
DX: J02.9 Acute pharyngitis, unspecified (principal); B37.9 Candidiasis, unspecified; F41.9 Anxiety disorder, unspecified; F32.9 Major depressive disorder, single episode, unspecified; E11.9 Type 2 diabetes mellitus without complications; Z90.710 Acquired absence of both cervix and uterus; Z90.89 Acquired absence of other organs
CPT/HCPCS: 81001; 87070; 87491; 87591; 87880; 96372; 99284; J0696; J8540; Q0111; Q0144

== ENCOUNTER 2019-03-05 16:30 | Emergency (ER) | payer MEDICAID ==
[~2019-03-05] VITALS: Ht 167.6 cm; Wt 64.9 kg
[~2019-03-05 16:30] MED LIST changes: +AZIT250T6 PO
[2019-03-05] MEDS ORDERED: AZITHROMYCIN 250 MG TABLET. PO ONE (17:15)
[2019-03-05] MEDS ORDERED: cefTRIAXone IM 250 MG VIAL IM ONE (17:15)
[2019-03-05 17:43] VITALS: BP 125/65
[2019-03-05 18:06] LABS: BILIRUBIN,URINE NEGATIVE (NEG); CLARITY,URINE CLEAR; COLOR,URINE YELLOW; NITRITE,URINE NEGATIVE (NEG); PH,URINE 5.5; PROTEIN,URINE NEGATIVE (NEG-TRACE); UROBILINOGEN,URINE 0.2 mg/dL (0.2 mg/dL)
[2019-03-05 18:13] LABS: BACTERIA,URINE FEW /HPF (0-FEW); RBC,URINE RARE /HPF (0-2); SQUAMOUS EPITHELIAL CELL,UR FEW /LPF; WBC,URINE 0 /HPF (0-4)
--- NOTE | 2019-03-05 18:58 | PHYS DOC ---
Past Medical History Past Medical History: No Pertinent History Past Surgical History: Hysterectomy Additional Past Surgical Histo: THYROIDECTOMY, HERNIA REPAIR Additional Information: 07/06 PPD Alcohol Use: Occasionally Drug Use: Marijuana Adult General Chief Complaint Chief Complaint: VAGINAL PROBLEM HPI HPI Patient is a 38 year old female who presents with vaginal discharge and concern for STD Reports chronic pelvic and rectal pain after intercourse. Hx of HYSTER OBREGANN did a pelvic US 2 months ago, small right ovarian cyst She reports she has been with her partner for 2 years. He has cheated on her Last night vaginal and anal pain with intercourse. she reports no lesions. states he ejaculated in her anus and he told her his semen appeared huntley. Today the patient with thick white vaginal discharge. No fevers She is resting in no distress Review of Systems Review of Systems Constitutional: Denies fever or chills [] Eyes: Denies change in visual acuity, redness, or eye pain [] HENT: Denies nasal congestion or sore throat [] Respiratory: Denies cough or shortness of breath [] Cardiovascular: No additional information not addressed in HPI [] GI: Denies nausea, vomiting, bloody stools or diarrhea []c/o chronic pelvic pain after intercourse/anal pain : Denies dysuria or hematuria []c/o vaginal discharge Musculoskeletal: Denies back pain or joint pain [] Integument: Denies rash or skin lesions [] Neurologic: Denies headache, focal weakness or sensory changes [] Endocrine: Denies polyuria or polydipsia [] All other systems were reviewed and found to be within normal limits, except as documented in this note. Current Medications Current Medications Current Medications Medications (Trade) Dose Ordered Sig/Angelica Start Time Stop Time Status Last Admin Dose Admin Azithromycin (Zithromax) 1,000 mg 1X ONCE 03/05/19 17:15 03/05/19 17:16 DC 03/05/19 17:27 1,000 MG Ceftriaxone Sodium (Rocephin Im) 250 mg 1X ONCE 03/05/19 17:15 03/05/19 17:16 DC 03/05/19 17:27 250 MG Allergies Allergies Allergies Coded Allergies Type Severity Reaction Last Updated Verified No Known Drug Allergies 02/27/14 No Physical Exam Physical Exam Constitutional: Well developed, well nourished, no acute distress, non-toxic appearance. [] HENT: Normocephalic, atraumatic, bilateral external ears normal, oropharynx moist, no oral exudates, nose normal. [] Eyes: PERRLA, EOMI, conjunctiva normal, no discharge. [] Neck: Normal range of motion, no tenderness, supple, no stridor. [] Cardiovascular:Heart rate regular rhythm, no murmur [] Lungs & Thorax: Bilateral breath sounds clear to auscultation [] Abdomen: Bowel sounds normal, soft, no tenderness, no masses, no pulsatile masses. [] : no external lesions, rectum unremarkable. Pelvic: no redness or bleeding. White thick discharge, absent cervix. Bimanual normal Skin: Warm, dry, no erythema, no rash. [] Back: No tenderness, no CVA tenderness. [] Extremities: No tenderness, no cyanosis, no clubbing, ROM intact, no edema. [] Neurologic: Alert and oriented X 3, normal motor function, normal sensory function, no focal deficits noted. [] Psychologic: Affect normal, judgement normal, mood normal. [] Current Patient Data Vital Signs Vital Signs Date Time Temp Pulse Resp B/P (MAP) Pulse Ox O2 Delivery O2 Flow Rate FiO2 03/05/19 17:43 98.4 75 16 125/65 (85) 97 Room Air 98.4 Lab Values Laboratory Tests Test 03/05/19 17:45 Urine Collection Type Unknown Urine Color Yellow Urine Clarity Clear Urine pH 5.5 Urine Specific [place] 1.015 Urine Protein Negative mg/dL (NEG-TRACE) Urine Glucose (UA) Negative mg/dL (NEG) Urine Ketones (Stick) Negative mg/dL (NEG) Urine Blood Small (NEG) Urine Nitrite Negative (NEG) Urine Bilirubin Negative (NEG) Urine Urobilinogen Dipstick 0.2 mg/dL (0.2 mg/dL) Urine Leukocyte Esterase Negative (NEG) Urine RBC Rare /HPF (0-2) Urine WBC 0 /HPF (0-4) Urine Squamous Epithelial Cells Few /LPF Urine Bacteria Few /HPF (0-FEW) Urine Mucus Marked /LPF Microbiology 03/05/19 Wet Prep - Final, Complete WET PREP Final YEAST NONE SEEN TRICHOMONAS NONE SEEN CLUE CELLS CLUE CELLS PRESENT EKG EKG [] Radiology/Procedures Radiology/Procedures [] Impressions: Vaginal discharge, BV, chronic pelvic and rectal pain Course & Med Decision Making Course & Med Decision Making Pertinent Labs and Imaging studies reviewed. (See chart for details) []Chronic pelvic and rectal pain She is here for concerns of STD Partner is also an ER patient Pending STD Wet prep + BV Prophylactic treatment with Rocephin and Zithromax Diflucan due to reported frequent yeast with antibiotics Flagyl for BV Stable for home care Call OBGYN for fu on chronic pain educated on home care and reasons to return to the ER Will Disclaimer Dragon Disclaimer This electronic medical record was generated, in whole or in part, using a voice recognition dictation system. Departure Departure Impression: Primary Impression: Vaginal discharge Additional Impression: BV (bacterial vaginosis) Disposition: 01 HOME, SELF-CARE Condition: GOOD Referrals: GILBERT ROMAN MD (PCP) Patient Instructions: Bacterial Vaginosis, [id number] Additional Instructions: Go home and rest Bacterial vaginosis Take the medications as prescribed Call your OBGYN for follow up to discuss chronic pain Return for any concerns or worsening symptoms Problem Qualifiers CHRISSIE FREEMAN APRN Mar 05, 2019 18:58
[2019-03-09 00:07] LABS: GC PROBE Positive (Negative)
== END 2019-03-05 19:10 | disposition home or self-care (01) ==
LOC: ER 16:30
DX: N76.0 Acute vaginitis (principal); B96.89 Other specified bacterial agents as the cause of diseases classified elsewhere; F17.200 Nicotine dependence, unspecified, uncomplicated; Z90.710 Acquired absence of both cervix and uterus; Z98.890 Other specified postprocedural states
CPT/HCPCS: 36415; 81001; 87491; 87591; 96372; 99284; J0696; Q0111; Q0144

== ENCOUNTER 2019-05-16 18:57 | Emergency (ER) | payer MEDICAID ==
[~2019-05-16] VITALS: Ht 167.6 cm; Wt 67.1 kg
[2019-05-16 19:10] VITALS: BP 115/82
[2019-05-16] MEDS ORDERED: HYDROcodone/APAP 5/325MG 1 TAB TABLET PO ONE (20:00)
--- NOTE | 2019-05-16 20:39 | RAD ---
Exam: Left ankle 3 views INDICATION: Fall TECHNIQUE: Frontal, lateral and oblique views of the left ankle Comparisons: None FINDINGS: Bone mineralization is normal. No acute or healed fractures. Soft tissues are unremarkable. Joint spaces are well-maintained. IMPRESSION: No acute osseous abnormality. Electronically signed by: Lamar Fong MD (05/16/2019 8:36 PM) [facility]
--- NOTE | 2019-05-16 20:40 | RAD ---
Exam: Left foot 3 views INDICATION: Fall TECHNIQUE: Frontal, lateral and oblique views of the left foot Comparisons: None FINDINGS: Bone mineralization is normal. No acute or healed fractures. Soft tissues are unremarkable. Joint spaces are well-maintained. IMPRESSION: No acute osseous abnormality. Electronically signed by: Lamar Fong MD (05/16/2019 8:37 PM) [facility]
[2019-05-16] MEDS ORDERED: TRAM50TA PO (20:48)
[2019-05-16] MEDS ORDERED: DICL50TA4 PO (20:48)
--- NOTE | 2019-05-16 20:48 | PHYS DOC ---
Past Medical History Past Medical History: No Pertinent History Past Surgical History: Hysterectomy Additional Past Surgical Histo: THYROIDECTOMY, HERNIA REPAIR Alcohol Use: Occasionally Drug Use: Marijuana Adult General Chief Complaint Chief Complaint: FOOT INJURY PAIN HPI HPI Patient is a 38-year-old female who presents with complaint of injury to her left ankle that she sustained earlier this morning when she was going down stairs. Patient states that she twisted the ankle because she has been dizzy with vertigo. She does indicate that she's been taking meclizine and is scheduled for vestibular rehabilitation but has not gone yet. She rates the pain in her ankle at an 8 out of 10 and states the pain is worsened with weightbearing. She denies any other injuries.[] Review of Systems Review of Systems Constitutional: Denies fever or chills [] Respiratory: Denies cough or shortness of breath [] Cardiovascular: No additional information not addressed in HPI [] Musculoskeletal: Positive left ankle pain [] Integument: Denies rash or skin lesions [] Neurologic: Denies headache, focal weakness or sensory changes. Complains of vertigo. [] Current Medications Current Medications Current Medications Medications (Trade) Dose Ordered Sig/Angelica Start Time Stop Time Status Last Admin Dose Admin Acetaminophen/ Hydrocodone Bitart (Lortab 5/325) 1 tab 1X ONCE 05/16/19 20:00 05/16/19 20:01 DC 05/16/19 20:00 1 TAB Scopolamine (Transderm-Scop) 1 patch 1X ONCE 05/16/19 20:45 05/16/19 20:46 UNV Allergies Allergies Allergies Coded Allergies Type Severity Reaction Last Updated Verified No Known Drug Allergies 02/27/14 No Physical Exam Physical Exam Constitutional: Well developed, well nourished, no acute distress, non-toxic appearance. [] Cardiovascular:Heart rate regular rhythm, no murmur [] Lungs & Thorax: Bilateral breath sounds clear to auscultation [] Extremities: [place] edition of left ankle demonstrates soft tissue swelling with ecchymosis around the lateral malleolus and moderate tenderness to palpation. [] Neurologic: Alert and oriented X 3, no focal deficits noted. [] Current Patient Data Vital Signs Vital Signs Date Time Temp Pulse Resp B/P (MAP) Pulse Ox O2 Delivery O2 Flow Rate FiO2 05/16/19 19:10 98.5 98 20 115/82 (93) 98 Room Air 98.5 EKG EKG [] Radiology/Procedures Radiology/Procedures [] Impressions: X-ray imaging of the left ankle and foot demonstrates no acute bony abnormalities. Course & Med Decision Making Course & Med Decision Making Pertinent Labs and Imaging studies reviewed. (See chart for details) [] Dragon Disclaimer Dragon Disclaimer This electronic medical record was generated, in whole or in part, using a voice recognition dictation system. Departure Departure Impression: Primary Impression: Left ankle sprain Disposition: HOME, SELF-CARE Condition: STABLE Referrals: GILBERT ROMAN MD (PCP) Patient Instructions: Ankle Sprain Scripts Diclofenac Sodium (DICLOFENAC SODIUM) 50 Mg Tablet.dr 1 TAB PO BID PRN for PAIN, #20 TAB Prov: JUANIS ROGEL Jr. DO 05/16/19 Tramadol Hcl (TRAMADOL HCL) 50 Mg Tablet 50 MG PO Q6HRS PRN for PAIN, #10 TAB Prov: JUANIS ROGEL Jr. DO 05/16/19 Problem Qualifiers Primary Impression: Left ankle sprain Encounter type: initial encounter Involved ligament of ankle: unspecified ligament Qualified Codes: S93.402A - Sprain of unspecified ligament of left ankle, initial encounter JUANIS ROGEL Jr. DO May 16, 2019 20:48
[2019-05-16] MEDS ORDERED: SCOPOLAMINE 1.5MG PATCH. TD ONE (21:00)
== END 2019-05-16 21:04 | disposition home or self-care (01) ==
LOC: ER 18:57
DX: S93.402A Sprain of unspecified ligament of left ankle, initial encounter (principal); X50.1XXA Overexertion from prolonged static or awkward postures, initial encounter; Y93.89 Activity, other specified; Y92.89 Other specified places as the place of occurrence of the external cause; Y99.8 Other external cause status
CPT/HCPCS: 73610; 73630; 99284; L4350

== ENCOUNTER 2019-05-31 17:14 | Emergency (ER) | payer MEDICAID ==
[~2019-05-31] VITALS: Ht 167.6 cm; Wt 72.6 kg
[~2019-05-31 17:14] MED LIST changes: +TRAM50TA PO
[2019-05-31 17:35] VITALS: BP 136/87
[2019-05-31] MEDS ORDERED: NYSTATIN 100,000 UNIT/GM TOPICAL OINTMENT 15GM TUBE. TP ONE (18:15)
--- NOTE | 2019-05-31 18:15 | PHYS DOC ---
Past Medical History Past Medical History: No Pertinent History Past Surgical History: Hysterectomy Additional Past Surgical Histo: THYROIDECTOMY, HERNIA REPAIR Alcohol Use: Occasionally Drug Use: Marijuana Adult General Chief Complaint Chief Complaint: VAGINAL PROBLEM HPI HPI Patient is a 38 year old AA female sense to the emergency department with complaints of vaginal itching, burning, and irregular vaginal discharge after having an increased amount of intercourse over the last 2-3 days. She has been having white discharge and at times vaginal spotting today. States that her vaginal discomfort was so intense at 3:00 this morning that woke her up. Patient was treated for gonorrhea at this facility recently and had a negative gonorrhea and chlamydia testing at her [facility]PITE WORKER's office after that visit. She also co mplains of a nonproductive cough for the last 2-3 days. Patient denies any fever, nausea, vomiting, diarrhea, abdominal pain, back pain, shortness breath, wheezing, nasal congestion, ear pain, or sore throat. She states that her children have a similar cough in that the cough has been going around her home for the last 2-3 weeks. She currently rates her discomfort a 10 out of 10 on the pain scale she denies any alleviating factors. All other ROS is neg unless otherwise noted in HPI. Review of Systems Review of Systems See Above Current Medications Current Medications Current Medications Medications (Trade) Dose Ordered Sig/Angelica Start Time Stop Time Status Last Admin Dose Admin Nystatin (Mycostatin) 1 karen 1X ONCE 05/31/19 18:15 05/31/19 18:17 DC 05/31/19 18:15 1 KAREN Allergies Allergies Allergies Coded Allergies Type Severity Reaction Last Updated Verified No Known Drug Allergies 02/27/14 No Physical Exam Physical Exam See Above Constitutional: Well developed, well nourished, no acute distress, non-toxic appearance. [] HENT: Normocephalic, atraumatic, bilateral external ears normal, nose normal. [] Eyes: PERRLA, EOMI, conjunctiva normal, no discharge. [] Neck: Normal range of motion, no stridor. [] Cardiovascular:Heart rate regular rhythm Lungs & Thorax: Bilateral breath sounds clear to auscultation, no wheezing, no retractions [] Pelvic Exam: Family Preservation Worker present [place] BOWMAN Abdomen: Nontender, soft External Genitalia: Normal Skin Speculum: Normal vaginal mucosa, thick white vaginal discharge, no cervix post hysterectomy Bimanual: No adnexal masses or tenderness Skin: Warm, dry, no erythema, no rash; 1 cm diameter superficial abscess noted to right groin, drained yellow pus with palpation. [] Back: No tenderness Extremities: No cyanosis, ROM intact, no edema. [] Neurologic: Alert and oriented X 3, no focal deficits noted. [] Psychologic: Affect normal, judgement normal, mood normal. [] Current Patient Data Vital Signs Vital Signs Date Time Temp Pulse Resp B/P (MAP) Pulse Ox O2 Delivery O2 Flow Rate FiO2 05/31/19 17:35 98.4 87 17 136/87 (103) 99 Room Air 98.4 Lab Values Laboratory Tests Test 05/31/19 17:40 Urine Color Yellow Urine Clarity Clear Urine pH 6.5 Urine Specific [place] 1.025 Urine Protein Negative mg/dL (NEG-TRACE) Urine Glucose (UA) Negative mg/dL (NEG) Urine Ketones (Stick) Negative mg/dL (NEG) Urine Blood Negative (NEG) Urine Nitrite Negative (NEG) Urine Bilirubin Negative (NEG) Urine Urobilinogen Dipstick 1.0 mg/dL (0.2 mg/dL) Urine Leukocyte Esterase Small (NEG) Urine RBC 0 /HPF (0-2) Urine WBC 11-20 /HPF (0-4) Urine Squamous Epithelial Cells Occ /LPF Urine Bacteria Few /HPF (0-FEW) Urine Mucus Mod /LPF Microbiology 05/31/19 Wet Prep - Final, Complete Laboratory Tests Test 05/31/19 17:40 Urine Color Yellow Urine Clarity Clear Urine pH 6.5 Urine Specific [place] 1.025 Urine Protein Negative mg/dL (NEG-TRACE) Urine Glucose (UA) Negative mg/dL (NEG) Urine Ketones (Stick) Negative mg/dL (NEG) Urine Blood Negative (NEG) Urine Nitrite Negative (NEG) Urine Bilirubin Negative (NEG) Urine Urobilinogen Dipstick 1.0 mg/dL (0.2 mg/dL) Urine Leukocyte Esterase Small (NEG) Urine RBC 0 /HPF (0-2) Urine WBC 11-20 /HPF (0-4) Urine Squamous Epithelial Cells Occ /LPF Urine Bacteria Few /HPF (0-FEW) Urine Mucus Mod /LPF Microbiology 05/31/19 Wet Prep - Final, Complete EKG EKG [] Radiology/Procedures Radiology/Procedures [] Course & Med Decision Making Course & Med Decision Making Pertinent Labs and Imaging studies reviewed. (See chart for details) dx: bacterial vaginosis, vulvovaginal candidiasis, cutaneous abscess, bronchitis [] Dragon Disclaimer Dragon Disclaimer This electronic medical record was generated, in whole or in part, using a voice recognition dictation system. Departure Departure Impression: Primary Impression: Candidal vulvovaginitis Additional Impressions: Bronchitis Cutaneous abscess of groin Bacterial vaginosis Disposition: HOME, SELF-CARE Condition: STABLE Referrals: GILBERT ROMAN MD (PCP) Patient Instructions: Abscess, Care After, Acute Bronchitis, [id number], Bacterial Vaginosis, [id number], Candidal Vulvovaginitis, [id number] Additional Instructions: Fill the prescriptions and use them as directed. Stop shaving your pubic hair. Apply hot, moist compress to abscess site as needed for comfort. Recommend use of a Cool mist humidifier in room at bedtime. Alternate Tylenol or ibuprofen as needed for pain/fever. Increase clear fluids. Avoid airway triggers such as smoke, fragrance, dust, and pollen. May take [id number] cough suppressants as needed. Follow-up with her primary care doctor next week, return to the ER if symptoms worsen. Scripts Fluconazole (DIFLUCAN) 150 Mg Tablet 1 TAB PO ONCE, #1 TAB 1 Refill may repeat in one week if symptoms persist Prov: LAKSHMI EPPS LOKIE ENGINEER 05/31/19 Benzonatate (TESSALON PERLE) 100 Mg Capsule 1 CAP PO TID PRN for COUGH for 7 Days, #21 CAP 0 Refills Prov: LAKSHMI EPPS APRN 05/31/19 Metronidazole (FLAGYL) 500 Mg Tablet 1 TAB PO BID, #14 TAB Prov: LAKSHMI EPPS LOKIE ENGINEER 05/31/19 Mupirocin (MUPIROCIN OINTMENT) 22 Gm Oint...g. 1 KAREN TP TID for WOUND CARE for 7 Days, #1 TUBE 0 Refills Prov: LAKSHMI EPPS LOKIE ENGINEER 05/31/19 Problem Qualifiers LAKSHMI EPPS LOKIE ENGINEER May 31, 2019 18:15
[2019-05-31 18:17] LABS: BILIRUBIN,URINE NEGATIVE (NEG); CLARITY,URINE CLEAR; COLOR,URINE YELLOW; NITRITE,URINE NEGATIVE (NEG); PH,URINE 6.5; PROTEIN,URINE NEGATIVE (NEG-TRACE)
[2019-05-31 18:26] LABS: BACTERIA,URINE FEW /HPF (0-FEW); RBC,URINE 0 /HPF (0-2); SQUAMOUS EPITHELIAL CELL,UR OCC /LPF
[2019-05-31] MEDS ORDERED: MUPI22OI2 TP (18:30)
[2019-05-31] MEDS ORDERED: METR500T PO (18:30)
[2019-05-31] MEDS ORDERED: BENZ100C PO (18:30)
[2019-05-31] MEDS ORDERED: FLUC150T PO (18:52)
[2019-06-04 03:06] LABS: GC PROBE Negative (Negative)
== END 2019-05-31 19:00 | disposition home or self-care (01) ==
LOC: ER 17:14
DX: B37.3 Candidiasis of vulva and vagina (principal); N76.0 Acute vaginitis; B96.89 Other specified bacterial agents as the cause of diseases classified elsewhere; J40 Bronchitis, not specified as acute or chronic; L02.214 Cutaneous abscess of groin; Z90.710 Acquired absence of both cervix and uterus; Z98.890 Other specified postprocedural states
CPT/HCPCS: 81001; 87086; 87491; 87591; 99284; Q0111

== ENCOUNTER 2021-03-14 11:46 | Emergency (ER) | payer MEDICAID ==
[~2021-03-14] VITALS: Ht 167.6 cm; Wt 90.9 kg
[~2021-03-14 11:46] MED LIST changes: +MUPI22OI2 TP
[2021-03-14] MEDS ORDERED: HYDROcodone/APAP 5/325MG 1 TAB TABLET PO ONE (12:30)
[2021-03-14 13:10] VITALS: BP 106/77
--- NOTE | 2021-03-14 13:11 | PHYS DOC ---
Past Medical History Past Medical History: No Pertinent History Additional Past Medical Histor: Vertigo, borderline personality, PTSD, OCD Past Surgical History: Hysterectomy Additional Past Surgical Histo: HERNIA REPAIR, Partial thyroid Smoking Status: Current Every Day Smoker Alcohol Use: None Drug Use: Marijuana General Adult EDM: Chief Complaint: FOOT INJURY PAIN HPI: HPI: Patient is a 40 year old Female who presents with was walking when she lost her balance yesterday and her right foot rolled inward. She states she heard a pop in the right lateral foot. She states that all night to get ice on it and took some ibuprofen. She states is not helping. States the swelling has gone down some. There is bruising to the lateral foot. She can put toe to pressure on the lower extremity. She denies numbness or tingling or joint laxity. She has a history of smoking, hysterectomy, vertigo, borderline personality, PTSD, OCD, partial thyroidectomy, hernia repair. She rates her pain throbbing 8 out of 10. Review of Systems: Review of Systems: Constitutional: Denies fever or chills. [] Eyes: Denies change in visual acuity. [] HENT: Denies nasal congestion or sore throat. [] Respiratory: Denies cough or shortness of breath. [] Cardiovascular: Denies chest pain or + right foot edema. [] GI: Denies abdominal pain, nausea, vomiting, bloody stools or diarrhea. [] : Denies dysuria. [] Musculoskeletal: Denies back pain or + right foot joint pain. [] Integument: Denies rash. + Right foot bruising [] Neurologic: Denies headache, focal weakness or sensory changes. [] Endocrine: Denies polyuria or polydipsia. [] Lymphatic: Denies swollen glands. [] Psychiatric: Denies depression or anxiety. [] Heart Score: C/O Chest Pain: No Risk Factors: Risk Factors: DM, Current or recent (<one month) smoker, HTN, HLP, family history of CAD, obesity. Risk Scores: Score 0 - 3: 2.5% MACE over next 6 weeks - Discharge Home Score 4 - 6: 20.3% MACE over next 6 weeks - Admit for Clinical Observation Score 7 - 10: 72.7% MACE over next 6 weeks - Early Invasive Strategies Current Medications: Current Medications Medications (Trade) Dose Ordered Sig/Angelica Start Time Stop Time Status Last Admin Dose Admin Acetaminophen/ Hydrocodone Bitart (Lortab 5/325) 1 tab 1X ONCE 03/14/21 12:30 03/14/21 12:32 DC Allergies: Allergies: Allergies Coded Allergies Type Severity Reaction Last Updated Verified No Known Drug Allergies 02/27/14 No Physical Exam: PE: Constitutional: Well developed, well nourished, no acute distress, non-toxic appearance. [] HENT: Normocephalic, atraumatic, bilateral external ears normal, oropharynx moist, no oral exudates, nose normal. [] Eyes: PERRLA, EOMI, conjunctiva normal, no discharge. [] Neck: Normal range of motion, no tenderness, supple, no stridor. [] Cardiovascular:Heart rate regular rhythm, no murmur [] Lungs & Thorax: Bilateral breath sounds clear to auscultation [] Abdomen: Bowel sounds normal, soft, no tenderness, no masses, no pulsatile masses. [] Skin: Warm, dry, no erythema, no rash. Right lateral foot bruising [] Back: No tenderness, no CVA tenderness. [] Extremities: Right lateral foot tenderness, no cyanosis, no clubbing, ROM int act, right lateral foot 1+ edema. [] Neurologic: Alert and oriented X 3, normal motor function, normal sensory function, no focal deficits noted. [] Psychologic: Affect normal, judgement normal, mood normal. [] Current Patient Data: Vital Signs: Vital Signs Date Time Temp Pulse Resp B/P (MAP) Pulse Ox O2 Delivery O2 Flow Rate FiO2 03/14/21 11:50 98.1 68 18 136/87 (103) 99 Room Air 98.1 EKG: EKG: [] Radiology/Procedures: Radiology/Procedures: [][facility] [address] [place] [address] IMAGING REPORT Signed PATIENT: LUCÍA VEGA ACCOUNT: [id number] : 1980 LOCATION: ER AGE: 40 SEX: F EXAM STATUS: REG ER ORD. PHYSICIAN: ELENI TURNER APRN REASON: pain , swelling PROCEDURE: ANKLE RIGHT 3V Site ID: [id number] EXAMINATION: XR FOOT_RIGHT 3 VIEWS, XR EXAM OF ANKLE_RIGHT 3VIEWS. HISTORY: 40 years Female Reason: pain , swelling COMPARISON: None. FINDINGS: Right ankle: No fracture, dislocation or radiopaque foreign body is seen in 3 views of the right ankle. The joint spaces and articular surfaces appear unremarkable. The right foot: There is an incomplete the nondisplaced fracture involving the base of the fifth metatarsal bone. The margins are in favor of the late subacute or chronic injury. Correlate clinically. No definite acute fracture. The joint spaces demonstrate no significant arthritic changes. IMPRESSION: Right ankle: Unremarkable exam. Right foot: Incomplete nondisplaced fracture in the base of the right fifth metatarsal with appearance of sclerotic margin favoring chronicity. No prior studies are available for comparison to confirm however. Correlate clinically. Electronically signed by: Mejia Feliciano MD (03/14/2021 1:57 PM) [id number] DICTATED and SIGNED BY: MEJIA FELICIANO MD DATE: 03/14/21 [id number] 0 Course & Med Decision Making: Course & Med Decision Making Pertinent Labs and Imaging studies reviewed. (See chart for details) See HPI. Alert and oriented x4. Ambulatory but limping on the right lower leg. She can do toe touch. Pedal pulses are present. Cap refill less than 2 seconds. Range of motion intact in the ankle. She can wiggle her toes. No joint laxity or deformity. Bruising and swelling 1+2 the lateral right foot. No swelling to the ankle. Tenderness to the right lateral foot. Patient will be placed in a walking boot and given crutches. She is to follow-up with an orthopedic doctor. [] Will Disclaimer: Will Disclaimer: This electronic medical record was generated, in whole or in part, using a voice recognition dictation system. Departure Departure Impression: Primary Impression: Fracture of fifth metatarsal bone of left foot Qualified Codes: S92.355A - Nondisplaced fracture of fifth metatarsal bone, left foot, initial encounter for closed fracture Disposition: HOME / SELF CARE / HOMELESS Condition: STABLE Referrals: GILBERT ROMAN MD (PCP) HENRI CORDERO Jr. DO Patient Instructions: Metatarsal Fracture with [facility] Additional Instructions: Follow-up with an orthopedic doctor. This appears to be a chronic fracture. Remember x-rays do not show ligaments and so you should follow-up with an orthopedic doctor to make sure there is no ligament damage. Take medication as prescribed and with food. Use ice and elevation. Scripts Hydrocodone Bit/Acetaminophen (HYDROCODONE-APAP 5-325 ) 1 Tab Tablet 1 TAB PO PRN Q6HRS PRN for PAIN, #12 TAB 0 Refills Prov: ELENI TURNER APRN 03/14/21 ELENI TURNER APRN Mar 14, 2021 13:11
--- NOTE | 2021-03-14 13:59 | RAD ---
Site ID: [id number] EXAMINATION: XR FOOT_RIGHT 3 VIEWS, XR EXAM OF ANKLE_RIGHT 3VIEWS. HISTORY: 40 years Female Reason: pain , swelling COMPARISON: None. FINDINGS: Right ankle: No fracture, dislocation or radiopaque foreign body is seen in 3 views of the right ankle. The jing nt spaces and articular surfaces appear unremarkable. The right foot: There is an incomplete the nondisplaced fracture involving the base of the fifth metatarsal bone. The margins are in favor of the late subacute or chronic injury. Correlate clinically. No definite acute fracture. The joint spaces demonstrate no significant arthritic changes. IMPRESSION: Right ankle: Unremarkable exam. Right foot: Incomplete nondisplaced fracture in the base of the right fifth metatarsal with appearanc e of sclerotic margin favoring chronicity. No prior studies are available for comparison to confirm h owever. Correlate clinically. Electronically signed by: Jose Antonio Feliciano MD (03/14/2021 1:57 PM) [id number]
[2021-03-14] MEDS ORDERED: HYDR-2761 PO (14:10)
== END 2021-03-14 14:37 | disposition home or self-care (01) ==
LOC: ER 11:46
DX: S92.355A Nondisplaced fracture of fifth metatarsal bone, left foot, initial encounter for closed fracture (principal); F43.10 Post-traumatic stress disorder, unspecified; F42.9 Obsessive-compulsive disorder, unspecified; F17.200 Nicotine dependence, unspecified, uncomplicated; X50.9XXA Other and unspecified overexertion or strenuous movements or postures, initial encounter; Y93.89 Activity, other specified; Y92.89 Other specified places as the place of occurrence of the external cause; Y99.8 Other external cause status
CPT/HCPCS: 29515; 73610; 73630; 99284